=== PATIENT | female | born 1935 | race Caucasian/White ===

== ENCOUNTER 2023-03-27 10:45 | Outpatient (OUT) | payer MEDICARE, SELFPAY ==
--- NOTE | 2023-03-27 10:48 | US_ITS ---
The [address] [address] Patient Name: YAHIR STILL MRN: [id number] date: 1935 Sex: F Assigned Patient Location: US Current Patient Location: Accession/Order Number: [id number] Exam Date: 03/27/2023 10:50 Report Date: 03/28/2023 08:35 At the request of: DEEP HUSSEIN Procedure: US soft tissue head and neck EXAM: US soft tissue head and neck HISTORY: Parotid mass K11.8 COMPARISON: Ultrasound soft tissue head and neck 06/17/2022 TECHNIQUE: Percutaneous ultrasound. FINDINGS: Hypoechoic lobular mass within the upper right neck 1.2 x 1.2 x 1.1 cm with mild internal blood flow. US/US soft tissue head and neck IMPRESSION: 1. Stable, to minimally smaller, right parotid region mass previously biopsied on 07/20/2022 with pathology consistent with a pleomorphic adenoma. Electronically authenticated by: JOYCE BELLO Date: 03/28/2023 08:35
== END 2023-03-27 10:46 | disposition home or self-care (01) ==
LOC: US 10:45
PROVIDERS: PCP Family Medicine; Visit Provider Otolaryngology
DX: K11.8 Other diseases of salivary glands (principal)
CPT/HCPCS: 76536

== ENCOUNTER 2023-10-24 12:36 | Outpatient (OUT) | payer MEDICARE, SELFPAY ==
--- NOTE | 2023-10-24 12:40 | US_ITS ---
The [address] [address] Patient Name: YAHIR STILL MRN: [id number] date: 1935 Sex: F Assigned Patient Location: US Current Patient Location: US Accession/Order Number: [id number] Exam Date: 10/24/2023 12:41 Report Date: 10/24/2023 13:35 At the request of: DEEP HUSSEIN Procedure: US soft tissue head and neck EXAM: US soft tissue head and neck HISTORY: mass of right parotid gland K11.8 COMPARISON: 03/27/2023 TECHNIQUE: Grayscale and color ultrasound FINDINGS: Stable lobular hyperechogenic hypervascular mass identified in the right parotid gland measuring 1.4 x 1.3 x 1.2 cm. No new mass. No pathologic lymphadenopathy US/US soft tissue head and neck IMPRESSION: Slight increase in size of a now 1.4 cm right parotid mass Electronically authenticated by: BOBBI SALAS Date: 10/24/2023 13:35
== END 2023-10-24 12:37 | disposition home or self-care (01) ==
LOC: US 12:36
PROVIDERS: PCP Family Medicine; Visit Provider Otolaryngology
DX: K11.8 Other diseases of salivary glands (principal)
CPT/HCPCS: 76536